=== PATIENT | male | born 1990 | race Caucasian/White ===

== ENCOUNTER 2018-07-09 02:04 | Emergency (ER) | payer MEDICAID ==
[~2018-07-09] VITALS: Ht 185.4 cm; Wt 75.0 kg
[2018-07-09 05:38] VITALS: BP 106/71
== END 2018-07-09 05:40 | disposition home or self-care (01) ==
LOC: ED 02:51
DX: F10.129 Alcohol abuse with intoxication, unspecified (principal)
CPT/HCPCS: 99283